=== PATIENT | male | born 1950 | race Caucasian/White ===

== ENCOUNTER → 2021-09-24 11:19 | Outpatient (CLI) | payer MEDICARE, OTHER, SELFPAY ==
[2021-09-24 12:58] LABS: COVID19 -Nasal RAPID Negative (Negative)
== END ==
PROVIDERS: PCP Family Medicine Sleep Medicine; Visit Provider Family Medicine Sleep Medicine
DX: Z20.822 Contact with and (suspected) exposure to COVID-19 (principal)
CPT/HCPCS: 87635; C9803

== ENCOUNTER 2021-09-27 09:20 | Day surgery (SDC) | payer MEDICARE, OTHER, SELFPAY ==
--- NOTE | 2021-09-27 | PATH_ITS ---
[facility] Accession Number: [id number] No. of containers..07 Tissue . 01 Material submitted: . PART A: duodenum - DUODENUM PART B: body - ANGULARIS PART C: cecum - CECAL POLYP PART D: hepatic flexure - HEPATIC FLEXURE PART E: colon - TRANSVERSE COLON PART F: rectosigmoid junction - RECTO-SIGMOID PART G: rectum - RECTAL POLYP . 02 Diagnosis: A. Duodenum, Biopsy: Duodenal mucosa with giardiasis. Negative for features of sprue, dysplasia, and malignancy. . B. Stomach, Angularis, Biopsy: Helicobacter pylori gastritis with intestinal metaplasia. Negative for dysplasia and malignancy. . C. Cecum, Polyp, Biopsy: Tubular adenoma. . D. Hepatic Flexure, Biopsy: Tubular adenoma in four of five fragments. . E. Transverse Colon, Biopsy: Multiple fragments of tubular adenoma. . F. Rectosigmoid Colon, Biopsy: Tubulovillous adenoma. No evidence of malignancy. . G. Rectum, Polyp, Biopsy: Tubulovillous adenoma. No evidence of malignancy or high-grade dysplasia. . [facility] 09/30/2021 1524 Local . 02 Comment: F. The rectosigmoid colon biopsy shows a tubulovillous adenoma with focal increasing complexity approaching high-grade dysplasia, however, there are no cribriforming glands diagnostic for high-grade dysplasia. The cauterized biopsy edge is negative for dysplasia. . 02 Electronically signed: . Mari Butler MD, Pathologist NPI- [id number] . 01 Gross description: . Part A: DUODENUM: Received in formalin are 2 fragment(s) of mcgill, soft tissue measuring 0.4 x 0.3 x 0.2 cm to 0.3 x 0.2 x 0.2 cm submitted entirely in 1 cassette(s) Part B: ANGULARIS: Received in formalin are multiple fragment(s) of mcgill, soft tissue measuring 1.5 x 0.2 x 0.1 cm in aggregate submitted entirely in 1 cassette(s) Part C: CECAL POLYP: Received in formalin are multiple fragment(s) of mcgill, soft tissue measuring 0.3 x 0.3 x 0.2 cm in aggregate submitted entirely in 1 cassette(s) Part D: HEPATIC FLEXURE: Received in formalin are multiple fragment(s) of mcgill, soft tissue measuring 2.0 x 0.5 x 0.2 cm in aggregate submitted entirely in 1 cassette(s) Part E: TRANSVERSE COLON: Received in formalin are multiple fragment(s) of mcglil, soft tissue measuring 2.0 x 0.7 x 0.4 cm in aggregate submitted entirely in 1 cassette(s) Part F: RECTO-SIGMOID: Received in formalin are 2 fragment(s) of mcgill, soft tissue measuring 1.7 x 1.0 x 0.9 cm to 0.7 x 0.7 x 0.6 cm which are inked, bisected and submitted entirely in 2 cassette(s) Part G: RECTAL POLYP: Received in formalin are 2 fragment(s) of mcgill, soft tissue measuring 0.5 x 0.4 x 0.3 cm to 0.3 x 0.2 x 0.1 cm submitted entirely in 1 cassette(s) /[facility] 09/28/2021 1938 Local . 02 Microscopic: . B. An immunohistochemical stain was performed to evaluate for Helicobacter organisms and is positive. The control stain showed appropriate reactivity. . F. Additional levels were examined. . G. Additional levels were examined. . * This test was developed and its performance characteristics determined by [employer]. It has not been cleared or approved by the U.S. Food and Drug Administration. The FDA has determined that such clearance or approval is not necessary. This test is used for clinical purposes. It should not be regarded as investigational or for research. . 02 Pathologist provided ICD-10: B96.81, D12.0, D12.3, D12.7, D12.8 . 02 CPT . 729388, 569386, 899083, 799703, 231678, 400067, 721400, Z56920 Specimen Comment: A courtesy copy of this report has been sent to [phone] Specimen Comment: 2055 Performed at: 01 [facility] [address] [address], [place], [place] [id number] MD Melo Rojas MD Phone: [phone] Performed at: 02 [facility] [address] [place], [place] [id number] MD Mari Butler MD Phone: [phone]
[2021-09-27 09:36] VITALS: BP 149/85; PULSE 84; RESP 17; TEMP 36.3; O2SAT 99; BMI 23.6
[2021-09-27] MEDS: SODIUM CHLORIDE 0.9% 1,000 ML 84 ML IV (09:50)
--- NOTE | 2021-09-27 10:12 | PM.HP.1 ---
History of Present Illness History of Present Illness Date Patient Seen: 09/27/21 Time Patient Seen: 10:14 Chief complaint: DX COLONOSCOPY/EGD Narrative: I reviewed my note from August 17, 2021. No changes. Patient History Family & Social History Social History: household members family Tobacco & Substance use: Smoking Status Current every day smoker alcohol intake current alcohol intake frequency holiday/special occasion Substance Use Type does not use Meds Home Medications and Allergies Home Medications Medication Instructions Recorded Confirmed Type simvastatin 20 mg tablet 20 mg PO DAILY 09/27/21 09/27/21 History Allergies Allergy/AdvReac Type Severity Reaction Status Date / Time No Known Drug Allergies Allergy Verified 09/27/21 09:32 Review of Systems Review of Systems ROS: Yes All systems reviewed with the patient and are negative except as otherwise documented Exam Vital Signs (past 8 hours): - 09/27/21 09:36 Temperature 97.4 F L Pulse Rate 84 Respiratory Rate 17 Blood Pressure 149/85 H Pulse Oximetry 99 Oxygen Delivery Method Room Air Const General: cooperative and comfortable Orientation: alert HENMT Head: normocephalic Ears: external ears normal Nose: external nose normal Face and sinus: normal facial exam Mouth: oral mucosae normal Eyes General: appearance normal, both eyes and all related structures Neck Neck: normal visual inspection Chest Chest: normal inspection of the chest Resp Effort & Inspection: normal respiratory effort Auscultation: clear to auscultation bilaterally Cardio Rate: regular rate GI Inspection: normal to inspection Skin General: no rashes or lesions noted and No jaundice Neuro General: patient alert and moves all extremities Cognition: normal cognition Speech: speech normal Extrem General: no pedal edema Psych Appearance: grossly normal Assessment & Plan Assessment & Plan narrative: 71-year-old male with a history of iron deficiency anemia. He has a personal history of colon polyps as per his recollection. EGD and colonoscopy are pursued today. Time Spent With Patient Critical Care time: I spent a total of [] minutes of critical care time on this patient's care today; this time is exclusive of procedural time.
--- NOTE | 2021-09-27 10:15 | PM.PREOP ---
Pre-operative Note COVID-19 COVID-19 status: Negative Result date/Date tested (Pos, Neg/Pending): 09/24/21 Criteria for continued procedure: Possibility delay results in more complex future surgery or treatment Interval Note History & Physical reviewed/Exam performed by Physician: Yes Changes to H&P: No ASA Class (for procedural sedation): II
--- NOTE | 2021-09-27 12:03 | P.OP.EGD&C_ITS ---
Operative Date/Time/Diagnoses Date of procedure: 09/27/21 Time of procedure: 12:03 Pre-op diagnosis: Iron deficiency anemia personal history of colon polyps Post-op diagnosis: same Procedure & Clinicians Study performed: EGD with biopsies and a colonoscopy with hot snare polypectomy and Ashlie ink submucosal injection Same procedure as scheduled: Yes Indications: Iron deficiency anemia and a personal history of colon polyps Surgeon: Mayo Casas Procedure Notes SCOAP/Timeout: Done Procedure in detail: After the risks and benefits were explained, written and verbal informed consent was obtained. The patient was brought into the procedure room and placed into the left lateral decubitus position. Please see nurse stonemason apprentice note for sedation details. The scope was introduced into the mouth through the bite b lock and advanced under direct visualization to the 2nd portion of the duodenum. The scope was slowly withdrawn carefully examining the mucosa for any defects or lesions. Retroflexed views were accomplished in the stomach. The stomach was decompressed, the scope was then removed from the patient who tolerated the procedure well. The patient was then turned around a digital rectal examination accomplished no significant pathology appreciated. The scope was introduced into the rectum and advanced to the cecum as identified by the appendiceal orifice and ileocecal valve. The terminal ileum was briefly interrogated the scope was then slowly withdrawn to carefully examine the mucosa for any defects or lesions. In a multiple direct views were made through the dentate line for exclusion of pathology the colon was decompressed scope removed the patient tolerated the procedure well. Bowel prep fair Adult colonoscope This was a prolonged procedure time. (complex pathology) procedure time was 1:00 a.m. and 14 minutes and therefore 22 modifier is requested. Scope withdrawal time: 49 minutes Sedation minutes: 74 Complications: none Impression: 1. Duodenum: This appeared visually normal from the bulb through the 2nd portion. Random D2 biopsies were taken for exclusion of sprue. There were a couple of diminutive submucosal xanthomas evident. 2. Stomach: The patient had a fairly lipomatous appearing pre-pyloric region. In the antrum there was a smooth stenotic region that gave the appearance of a large pylorus. However the scope could easily pass through this into the pre- pyloric region where the actual pylorus was identified. The angularis was quite irregular friable with superficial ulcer to features. I took multiple biopsies from this location for exclusion of neoplasia. The total involved surface area was perhaps 4 x 2 cm. In the more proximal gastric body there was a small submucosal nodule of uncertain etiology. Otherwise retroflexed views of the LES were unremarkable. 3. Esophagus: The squamocolumnar junction correlated with the top of the gastric folds. GEJ was at about 40 cm from the incisors. Patient had evidence of LA grade B erosive esophagitis. No additional esophageal pathology was appreciated. 4. Terminal ileum: This appeared visually unremarkable. 5. Colon: There was moderate diverticulosis in the sigmoid colon. In the cecum there was an approximately 7 mm polyp removed with hot snare. At the hepatic flexure there was an approximately 12 mm sessile polyp removed with hot snare and then a much smaller 5 mm polyp removed with hot snare. In the transverse colon there were [address] of hot snare. These ranged in size from 6-10 mm approximately. In the rectum there was a diminutive 5 mm polyp removed with cold snare and then cauterized for hemostasis. At the rectosigmoid junction there was a semi pedunculated 2-1/2 cm polyp irregular in its surface area removed with hot snare. Our 1st excision demonstrated that we had left polyp in the hind. I had to work to reposition the snare for 2 subsequent excisions in order to remove all of this polyp visually. This was at about 15 cm from the anal verge. A 1 mL Ashlie ink spot tattoo was placed near this polyp for future identification. In the cecum there were 3 small nonbleeding AVMs present. The largest was perhaps 6-7 mm Endoscopic diagnosis 1. LA grade B erosive esophagitis 2. Irregular appearing gastric angularis-biopsied 3. Lipomatous appearing pre pyloric region 4. Gastric submucosal nodule 5. Diverticulosis 6. Multiple colon polyps 7. Cecal AVMs x3 Post-procedure Plan for aftercare: 1. Await histopathology 2. Considering the number of polyps seen and removed today along with the piecemeal nature of the polyp from the rectosigmoid region, repeat colonoscopy will likely be suggested for 6 months time. Should an iron deficiency remain present, at that procedure it may be additionally appropriate to cauterize the 3 AVMs noted in the cecum. 3. Avoid NSAIDs for the next 7-10 days. Disposition: PACU
[2021-09-27 12:06] VITALS: BP 109/67; PULSE 76; RESP 17; TEMP 36.1; O2SAT 98
[2021-09-27 12:11] VITALS: BP 110/70; PULSE 76; RESP 18; O2SAT 99
[2021-09-27 12:16] VITALS: BP 112/71; PULSE 66; RESP 13; O2SAT 97
[2021-09-27 12:31] VITALS: BP 126/70; PULSE 62; RESP 16; TEMP 36.3; O2SAT 99
[2021-09-27 12:41] VITALS: BP 126/72; PULSE 66; RESP 14; TEMP 36.1; O2SAT 99
== END 2021-09-27 12:52 | disposition home or self-care (01) ==
PROVIDERS: PCP Physician Assistant; Referring Provider Internal Medicine Gastroenterology; Visit Provider Internal Medicine Gastroenterology
PROC: 0DJ08ZZ Inspection of Upper Intestinal Tract, Via Natural or Artificial Opening Endoscopic (ICD-10-PCS; CPT 43235; principal; 2021-09-27 10:30)
PROC: 0DJD8ZZ Inspection of Lower Intestinal Tract, Via Natural or Artificial Opening Endoscopic (ICD-10-PCS; CPT 45378; 2021-09-27 10:30)
DX: D50.9 Iron deficiency anemia, unspecified (principal); K55.20 Angiodysplasia of colon without hemorrhage; K20.80 Other esophagitis without bleeding; K57.30 Diverticulosis of large intestine without perforation or abscess without bleeding; Z86.010 Personal history of colon polyps; Z80.0 Family history of malignant neoplasm of digestive organs; K29.60 Other gastritis without bleeding; B96.81 Helicobacter pylori [H. pylori] as the cause of diseases classified elsewhere; A07.1 Giardiasis [lambliasis]; D12.0 Benign neoplasm of cecum; D12.3 Benign neoplasm of transverse colon; D12.5 Benign neoplasm of sigmoid colon; D12.8 Benign neoplasm of rectum
CPT/HCPCS: 45385; 45381; 43239; J2704

== ENCOUNTER → 2022-05-03 10:16 | Outpatient (CLI) | payer MEDICARE, OTHER, SELFPAY ==
[2022-05-03 13:06] LABS: COVID19 -Nasal RAPID Negative (Negative)
== END ==
PROVIDERS: PCP Physician Assistant; Visit Provider Surgery
DX: Z20.822 Contact with and (suspected) exposure to COVID-19 (principal); Z01.812 Encounter for preprocedural laboratory examination
CPT/HCPCS: 87635; C9803

== ENCOUNTER 2022-05-04 09:48 | Day surgery (SDC) | payer MEDICARE, OTHER, SELFPAY ==
[2022-05-04] VITALS (7 sets, daily range): BP systolic 109–135; BP diastolic 57–78; PULSE 50–96; RESP 8–20; TEMP 36.3–36.8; O2SAT 98–100; BMI 25.1
--- NOTE | 2022-05-04 | PATH_ITS ---
[facility] Accession Number: [id number] . 01 Material submitted: . PART A: duodenum - DUODENAL PART B: stomach - ANTRUM PART C: stomach - ANGULARIS PART D: stomach - LESSER CURVE PART E: stomach - GREATER CURVE PART F: stomach - BODY OF STOMACH PART G: rectosigmoid junction - RECTOSIGMOID COLON POLYPS . 01 Diagnosis: A. Duodenum, Biopsy: Duodenal mucosa with no diagnostic abnormality. Negative for active inflammation, features of sprue, dysplasia, or malignancy. . B. Stomach, Antrum, Biopsy: Antral mucosa with mild chronic gastritis and intestinal metaplasia. Negative for Helicobacter by immunohistochemistry. Negative for dysplasia and malignancy. . C. Stomach, Angularis, Biopsy: Mild chronic gastritis with intestinal metaplasia (3 of 3 fragments). Negative for Helicobacter by immunohistochemistry. Negative for dysplasia and malignancy. . D. Stomach, Lesser Curve, Biopsy: Body-type mucosa with mild chronic gastritis. Negative for Helicobacter by immunohistochemistry. Negative for intestinal metaplasia. Negative for dysplasia and malignancy. . E. Stomach, Greater Curve, Biopsy: Body-type mucosa with mild chronic gastritis. Negative for Helicobacter by immunohistochemistry. Negative for intestinal metaplasia. Negative for dysplasia and malignancy. . F. Stomach, Body, Biopsy: Body-type mucosa with mild chronic gastritis. Negative for Helicobacter by immunohistochemistry. Negative for intestinal metaplasia. Negative for dysplasia and malignancy. . G. Rectosigmoid Colon, Polyps, Biopsies: Hyperplastic polyps, 2 fragments. MR 05/10/2022 [facility]3 Local . 01 Electronically signed: . Mari Butler MD, Pathologist NPI- [id number] . 01 Gross description: . Part A: DUODENAL: Received in formalin is 1 fragment(s) of mcgill, soft tissue measuring 0.3 x 0.2 x 0.2 cm submitted entirely in 1 cassette(s) Part B: ANTRUM: Received in formalin are 2 fragment(s) of mcgill, soft tissue measuring 0.1 x 0.1 x 0.1 cm to 0.2 x 0.2 x 0.2 cm submitted entirely in 1 cassette(s) Part C: ANGULARIS: Received in formalin are 3 fragment(s) of mcgill, soft tissue measuring 0.1 x 0.1 x 0.1 cm to 0.2 x 0.2 x 0.2 cm submitted entirely in 1 cassette(s) Part D: LESSER CURVE: Received in formalin are 2 fragment(s) of mcgill, soft tissue measuring 0.2 x 0.2 x 0.2 cm to 0.3 x 0.3 x 0.2 cm submitted entirely in 1 cassette(s) Part E: GREATER CURVE: Received in formalin is 1 fragment(s) of mcgill, soft tissue measuring 0.2 x 0.2 x 0.2 cm submitted entirely in 1 cassette(s) Part F: BODY OF STOMACH: Received in formalin are 2 fragment(s) of mcgill, soft tissue measuring 0.1 x 0.1 x 0.1 cm to 0.3 x 0.3 x 0.2 cm submitted entirely in 1 cassette(s) Part G: RECTOSIGMOID COLON POLYPS: Received in formalin are 3 fragment(s) of mcgill, soft tissue measuring 0.1 x 0.1 x 0.1 cm to 0.4 x 0.2 x 0.2 cm submitted entirely in 1 cassette(s) /[facility] 05/05/2022 2233 Local . 01 Microscopic: . B-F: Immunohistochemical stains were performed on blocks B, C, D, E and F in order to evaluate for Helicobacter organisms and are all negative. The control stain showed appropriate reactivity. . * This test was developed and its performance characteristics determined by [employer]. It has not been cleared or approved by the U.S. Food and Drug Administration. The FDA has determined that such clearance or approval is not necessary. This test is used for clinical purposes. It should not be regarded as investigational or for research. . 01 Pathologist provided ICD-10: K63.5, D50.9 . 01 CPT . 101359, 732987, 457949, 666527, 611441, 716106, 191446, B20102 Specimen Comment: A courtesy copy of this report has been sent to [phone] Performed at: 01 [facility] [address] [place] [address], [place], [place] [id number] MD Melo Rojas MD Phone: [phone]
--- NOTE | 2022-05-04 10:28 | PM.HP.1 ---
History of Present Illness History of Present Illness Date Patient Seen: 05/04/22 Time Patient Seen: 10:29 Chief complaint: DX COLONOSCOPY/EGD W/POSS BX'S Narrative: History gastric intestinal metaplasia colon polyps Patient History Family & Social History Social History: household members spouse,family Tobacco & Substance use: Tobacco type e-cigarettes Smoking Status Current every day smoker alcohol intake current alcohol intake frequency holiday/special occasion Substance Use Type does not use Meds Home Medications and Allergies Home Medications Medication Instructions Recorded Confirmed Type simvastatin 20 mg tablet 20 mg PO DAILY 09/27/21 09/27/21 History Allergies Allergy/AdvReac Type Severity Reaction Status Date / Time No Known Drug Allergies Allergy Verified 05/04/22 10:28 Review of Systems Review of Systems ROS: Yes All systems reviewed with the patient and are negative except as otherwise documented Exam Vital Signs (past 8 hours): - 05/04/22 10:12 Temperature 98.3 F Pulse Rate 62 Respiratory Rate 16 Blood Pressure 135/71 Pulse Oximetry 99 Oxygen Delivery Method Room Air Oxygen Delivery Method Room Air Const General: cooperative HENMT Head: normal to inspection Eyes General: appearance normal, both eyes and all related structures Neck Neck: normal visual inspection Chest Chest: normal inspection of the chest Resp Effort & Inspection: normal respiratory effort Cardio Rate: regular rate GI Inspection: normal to inspection Skin General: no rashes or lesions noted Neuro General: patient alert and patient awake Extrem General: normal to inspection and no pedal edema Psych Appearance: grossly normal Assessment & Plan Assessment & Plan narrative: 72-year-old male with esophagitis, gastric intestinal metaplasia, Helicobacter infection, Giardia infection, and colon polyps here for repeat EGD colon. Time Spent With Patient Critical Care time: I spent a total of [] minutes of critical care time on this patient's care today; this time is exclusive of procedural time.
--- NOTE | 2022-05-04 10:30 | PM.PREOP ---
Pre-operative Note COVID-19 COVID-19 status: Negative Result date/Date tested (Pos, Neg/Pending): 05/03/22 Criteria for continued procedure: Possibility delay results in more complex future surgery or treatment Interval Note History & Physical reviewed/Exam performed by Physician: Yes Changes to H&P: No ASA Class (for procedural sedation): II
[2022-05-04] MEDS: SODIUM CHLORIDE 0.9% 1,000 ML 84 ML IV (10:32)
--- NOTE | 2022-05-04 11:52 | P.OP.EGD&C_ITS ---
Operative Date/Time/Diagnoses Date of procedure: 05/04/22 Time of procedure: 11:53 Pre-op diagnosis: Gastric intestinal metaplasia, esophagitis, colon polyps Post-op diagnosis: same Procedure & Clinicians Study performed: EGD with biopsies and colonoscopy with hot snare polypectomy Same procedure as scheduled: Yes Indications: Gastric intestinal metaplasia, esophagitis, colon polyps Surgeon: Mayo Casas Procedure Notes SCOAP/Timeout: Done Procedure in detail: After the risks and benefits were explained, written and verbal informed consent was obtained. The patient was brought into the procedure room and placed into the left lateral decubitus position. Please see nurse plumbing inspector notes for sedation details. The scope was introduced into the mouth through the bite block and advanced under direct visualization to the 2nd portion of the duodenum. The scope was slowly withdrawn carefully examining the mucosa for any defects or lesions. Retroflexed views were accomplished in the stomach. The stomach was decompressed, the scope was then removed from the patient who tolerated the procedure well. The scope was then turned around a digital rectal examination accomplished. The scope was introduced into the rectum and advanced to the cecum as identified by the appendiceal orifice and ileocecal valve. The scope was slowly withdrawn to carefully examine the mucosa for any defects or lesions. Multiple direct views were made through the dentate line for exclusion of pathology. The colon was decompressed scope removed the patient who tolerated the procedure well. Adult colonoscope Bowel prep adequate Scope withdrawal time: 23 minutes Sedation minutes: 46 Complications: none Impression: 1. Duodenum: This was normal from the bulb through the 2nd portion. In light of prior biopsy results, a repeat duodenal biopsy was acquired from D2. 2. Stomach: The patient had a diffuse gastropathy throughout. The antral folds were a little less prominent this time. No mass lesions no outlet obstruction. Gastric mapping was accomplished through biopsies taken from the antrum, angularis, lesser curve, greater curve, and gastric body. In the area of the angularis there was some nodularity to the mucosa which was targeted in the biopsies acquired. In the distal to mid gastric body posteriorly there was a 7 mm firm submucosal lesion of uncertain etiology. This did not demonstrate adequate pillowing. Otherwise retroflexed views of the LES were unremarkable. 3. Esophagus: The squamocolumnar junction correlated with the top of the gastric folds. GEJ was at approximately 30 9 cm from the incisors. There was no evidence of any active esophagitis. There was a subtle sliding hiatal hernia the remainder of the esophagus was unremarkable. 4. Colon: The previously placed tattoo was identified at the rectosigmoid junction. We reviewed the pictures from the last case. In the region of the prior large polyp that was removed from this location there were 3 small foci of polypoid residual mucosa. These were each removed with hot snare. Two of these suggested probable adenomatous features in 1 of them was probably hyperplastic. There were some other diminutive hyperplastic polyps left alone in the rectosigmoid region. Diverticulosis was seen in the left colon. The remainder of the colon did not demonstrate any recurrent or residual lesions. Grade 2 hemorrhoids were noted. In the cecum there were 2 nonbleeding AVMs once again identified. Endoscopic diagnosis 1. Nodular angularis 2. Gastropathy 3. Gastric small submucosal lesion 4. Healed esophagitis 5. Recurrent rectosigmoid small polyps 6. Grade 2 hemorrhoids 7. Diverticulosis 8. Cecal AVMs nonbleeding Post-procedure Plan for aftercare: 1. Await histopathology. 2. Surveillance EGD will likely need to be ac complished with EUS capabilities. 3. Surveillance colonoscopy timing will be contingent on histopathology. Disposition: PACU
== END 2022-05-04 12:30 | disposition home or self-care (01) ==
PROVIDERS: PCP Physician Assistant; Referring Provider Internal Medicine Gastroenterology; Visit Provider Internal Medicine Gastroenterology
PROC: 0DJ08ZZ Inspection of Upper Intestinal Tract, Via Natural or Artificial Opening Endoscopic (ICD-10-PCS; CPT 43235; principal; 2022-05-04 11:00)
PROC: 0DJD8ZZ Inspection of Lower Intestinal Tract, Via Natural or Artificial Opening Endoscopic (ICD-10-PCS; CPT 45378; 2022-05-04 11:00)
DX: Z12.11 Encounter for screening for malignant neoplasm of colon (principal); Z86.010 Personal history of colon polyps; K31.A0 Gastric intestinal metaplasia, unspecified; Z80.0 Family history of malignant neoplasm of digestive organs; Z72.0 Tobacco use; K57.30 Diverticulosis of large intestine without perforation or abscess without bleeding; K64.1 Second degree hemorrhoids; K63.5 Polyp of colon; K44.9 Diaphragmatic hernia without obstruction or gangrene; K31.9 Disease of stomach and duodenum, unspecified; K29.50 Unspecified chronic gastritis without bleeding; K31.A15 Gastric intestinal metaplasia without dysplasia, involving multiple sites
CPT/HCPCS: 45385; 43239; J2704

== ENCOUNTER → 2024-11-12 15:09 | Outpatient (CLI) | payer MEDICARE, OTHER, SELFPAY ==
--- NOTE | 2024-11-12 15:12 | DI.CT.S_ITS ---
PROCEDURE: CT LUNG LOW DOSE SCREENING INDICATIONS: 48yr smoking History TECHNIQUE: Noncontrast 2.0-2.5 mm thick sections acquired from the pulmonary apices to the posterior costophrenic angles. 7 mm thick axial MIP, and 5 mm coronal and sagittal reformats were then acquired. For radiation dose reduction, the following was used: automated exposure control, adjustment of mA and/or kV according to patient size. COMPARISON: None. FINDINGS: Image quality: Diagnostic. Lower Neck: No enlarged lymph nodes. Thyroid: No thyroid nodules which require sonographic follow up, per consensus guidelines. Axillae: No enlarged lymph nodes. Chest Wall: Unremarkable. Bones: Visualized osseous structures appear intact without acute fracture or focal destructive lesion. No acute compression fractures of the imaged spine. Lungs and Pleura: No pneumothorax or pleural effusions. No consolidation or suspicious nodules. Heart: Heart size is normal. No pericardial effusion. Coronary atherosclerotic vascular calcifications are noted. Thoracic Vessels: The aorta and pulmonary arteries demonstrate normal size. Atherosclerotic calcifications of the aortic arch are present. Mediastinum and Jennifer: No enlarged lymph nodes. Esophagus: No wall thickening. No hiatal hernia. Upper Abdomen: Visualized upper abdomen solid organs and bowel loops appear normal. IMPRESSION: No suspicious pulmonary nodules. LUNG-RADS 1; continued annual screening, if eligible. Clinically Significant Non-pulmonary Findings: Atherosclerotic calcifications of the coronary arteries. Dictated by: David Mendiola M.D. on 11/13/2024 at 12:34 Approved by: David Mendiola M.D. on 11/13/2024 at 12:37
== END ==
PROVIDERS: PCP Family Medicine; Referring Provider Family Medicine; Visit Provider Family Medicine
DX: Z12.2 Encounter for screening for malignant neoplasm of respiratory organs (principal); F17.210 Nicotine dependence, cigarettes, uncomplicated; I25.10 Atherosclerotic heart disease of native coronary artery without angina pectoris
CPT/HCPCS: 71271

== ENCOUNTER → 2025-01-25 08:42 | Outpatient (CLI) | payer MEDICARE, OTHER, SELFPAY ==
--- NOTE | 2025-01-25 08:45 | DI.RAD.S_ITS ---
PROCEDURE: XR HIP W PEL IF DONE RT 2V INDICATIONS: r/o OA TECHNIQUE: AP pelvis with lateral view(s) of the right hip(s). COMPARISON: None. FINDINGS: Bones: No fractures or dislocations. Mild bilateral hip joint degeneration with joint space narrowing and mild marginal spurring. Pelvic ring appears intact. No suspicious bony lesions. Soft tissues: The visualized bowel gas pattern is normal. No suspicious soft tissue calcifications. IMPRESSION: No acute osseous abnormalities. Mild bilateral hip joint degeneration. Dictated by: Manuel Hickman M.D. on 01/25/2025 at 9:27 Approved by: Manuel Hickman M.D. on 01/25/2025 at 9:28
--- NOTE | 2025-01-25 08:45 | DI.RAD.S_ITS ---
PROCEDURE: XR LUMBAR SPINE MIN 4V INDICATIONS: lumbar radiculopathy TECHNIQUE: 5 views of the lumbar spine were acquired, including bilateral oblique views. COMPARISON: None. FINDINGS: Bones: 5 nonrib-bearing vertebrae are present. There is normal bony alignment. No vertebral body compression fractures. No suspicious bony lesions. There is multilevel facet arthropathy, worse at L4-5 and L5-S1. Multilevel disc height loss with degenerative endplate changes and spurring is present. Moderate disc height loss at L5-S1. Soft tissues: Overlying bowel gas pattern is normal. No suspicious soft tissue calcifications. Atherosclerotic vascular calcifications. Oblique images: No pars defects. IMPRESSION: Multilevel degenerative changes of the lumbar spine. Dictated by: Manuel Hickman M.D. on 01/25/2025 at 9:28 Approved by: Manuel Hickman M.D. on 01/25/2025 at 9:29
== END ==
PROVIDERS: PCP Family Medicine; Referring Provider Family Medicine; Visit Provider Chiropractor
DX: M47.26 Other spondylosis with radiculopathy, lumbar region (principal); M47.27 Other spondylosis with radiculopathy, lumbosacral region; M25.551 Pain in right hip; M16.0 Bilateral primary osteoarthritis of hip
CPT/HCPCS: 72110; 73502